=== PATIENT | female | born 1995 | race Caucasian/White ===

== ENCOUNTER 2019-12-06 21:04 | Emergency (ER) | payer BC ==
[~2019-12-06] VITALS: Ht 172.7 cm; Wt 59.1 kg
[2019-12-06 21:15] VITALS: BP 108/70
[2019-12-06] MEDS ORDERED: HYDR-3965 PO (22:19)
[2019-12-06] MEDS ORDERED: SILV50CR31 TOP (22:19)
[2019-12-06] MEDS ORDERED: HYDROcodone/acetaminophen 5mg/325mg tablet PO ONE (22:20)
== END 2019-12-06 22:41 | disposition home or self-care (01) ==
LOC: ER 21:05
DX: T23.221A Burn of second degree of single right finger (nail) except thumb, initial encounter (principal); M79.644 Pain in right finger(s); X08.8XXA Exposure to other specified smoke, fire and flames, initial encounter; Y93.G3 Activity, cooking and baking; Y92.89 Other specified places as the place of occurrence of the external cause; Y99.8 Other external cause status
CPT/HCPCS: 99283